=== PATIENT | female | born 1960 | race Caucasian/White ===

== ENCOUNTER 2017-07-29 11:46 | Outpatient (CLI) | payer OTHER ==
[2013-03-12 15:59] VITALS: BP 165/104
[2017-07-29 12:09] LABS: BASOPHILS % 0.4 (0.0-1.5); EOSINOPHILS % 5.4 % (0.0-6.8); MEAN CORPUSCULAR HEMOGLOBIN 29.2 pg (28.0-34.0); MEAN CORPUSCULAR VOLUME 85.1 fl (80.0-100.0); NEUTROPHILS # 4.7 # k/uL (1.4-7.7)
[2017-07-29 13:11] LABS: eGFR (African) > 60; eGFR (Non-African) > 60
--- NOTE | 2017-07-29 19:04 | Diagnostic Imaging Report ---
SALMA COOK [facility] [id number] [facility] [address] [place] [address]. [id number] Report Submission Date: Jul 29, 2017 12:28:33 PM EPIC RADIANT ANALYST Patient Study Name: AXEL JOY Date: Jul 29, 2017 12:08:26 PM EPIC RADIANT ANALYST Modality Type: DX Gender: F Description: CHEST : 62 Institution: [facility] Physician: SALMA COOK Examination: PA and lateral chest. History: CXR, SOA SINCE MAY 2017, OCCASIONAL COUGH AND DISCOMFORT, NON- SMOKER (Hx) Comparison exam: None provided. Findings: PA lateral chest demonstrate a normal cardiac and mediastinal silhouette. Body habitus reduces sensitivity. No focal/gross infiltrate. No blunting of the costophrenic margins. Mild articular degenerative changes. Impression: Limited study due to body habitus. No acute appearing pulmonary process. If symptoms persist, consider obtaining high-resolution CT chest to better evaluate lung parenchyma. Electronically signed on Jul 29, 2017 12:28:33 PM EPIC RADIANT ANALYST by: Reji REAGAN
== END 2017-07-29 11:47 ==
LOC: LAB 11:46
PROVIDERS: ATTEND Physician Assistant
DX: R06.02 Shortness of breath (principal); R00.2 Palpitations
CPT/HCPCS: 36415; 71046; 80053; 83880; 85025

== ENCOUNTER 2018-04-16 15:37 | Emergency (ER) | payer OTHER ==
[2018-04-16] MEDS ORDERED: ASPIRIN 81 MG CHEW TAB PO ONE (15:54)
[2018-04-16] MEDS ORDERED: LORazepam 2 MG/ML VIAL IVP ONE (15:57)
[2018-04-16 16:26] LABS: BASOPHILS % 0.3 (0.0-1.5); EOSINOPHILS % 2.8 % (0.0-6.8); MEAN CORPUSCULAR HEMOGLOBIN 27.3 pg (28.0-34.0); MONOCYTES % 5.7 % (0.0-11.0); NEUTROPHILS # 4.6 # k/uL (1.4-7.7)
--- NOTE | 2018-04-16 16:40 | ED Physician Documentation ---
Chest Pain - HISTORIAN Historian: patient - HPI Chief Complaint: Dyspnea Additional Information: recurrent past episodes sob w/chest tightness lower anterior and bilat chest "tightness" occurred 4 times past 24 hrs. Duration: waxing, waning Last known Well Date: 04/15/18 Last Known Well Time: 16:20 Last known Well Code/Unknown Code: Unknown Context: emotional upset (slight) Severity: moderate Quality: pressure, tightness (like band around bottom of ribs) Chest Pain Radiation: no radiation Chest Pain Signs/Symptoms: denies: nausea, vomiting, diaphoresis, cool extremities Worsened By: deep breaths, exertion, movement - ROS CONST: none MS/LYMPH: none GI/: none SKIN/ENDO: none NEURO/PSYCH: anxiety - PAST HX GA risk factors: hypertension (pneumonia - uses alb neb for occ sob---c/recent polydypsia but is some evid air hunger resp tachypnea near 30) TAD/AAA risk factors: (d/c post spon ) Neuro deficit: none Lung disease: asthma (?) Allergies/Adverse Reactions: Allergies Allergy/AdvReac Type Severity Reaction Status Date / Time Penicillins Allergy Severe Face Verified 04/16/18 17:04 Swelling Home Medications: Ambulatory Orders Medication Instructions Recorded Furosemide [Lasix] 40 mg PO DAILY #30 tablet 04/16/18 Lisinopril [Prinivil] 10 mg PO DAILY #30 tablet 04/16/18 - SOCIAL HX Smoking History: non-smoker Alcohol Use: none Drug Use: none - FAMILY HX Family HX: CAD over 55 (htn lung ca cva) - VITAL SIGNS Vital Signs: Vital Signs Temp Pulse Resp BP Pulse Ox 165/104 03/12/13 15:53 - REVIEWED ASSESSMENTS Nursing Assessment Reviewed: Yes Vitals Reviewed: Yes Progress - Progress Progress: pt prev took lisinopril for bp but off for few months {1725] ED Results Lab/Radiology - Lab Results Lab Results: Lab Results 04/16/18 16:16 WBC 6.50 K/ul K/ul (4.00-12.00) RBC 5.10 M/ul M/ul (3.90-5.20) Hgb 13.9 g/dL g/dL (12.0-16.0) Hct 42.4 % % (34.5-46.5) MCV 83.0 fl fl (80.0-100.0) MCH 27.3 pg L pg (28.0-34.0) MCHC 32.9 g/dL g/dL (30.0-36.0) RDW 15.4 % H % (11.3-14.3) Plt Count 265 K/mm3 K/mm3 (130-400) Neut % (Auto) 70.9 % % (39.0-79.0) Lymph % (Auto) 20.3 % % (16.0-50.0) Loving % (Auto) 5.7 % % (0.0-11.0) Eos % (Auto) 2.8 % % (0.0-6.8) Baso % (Auto) 0.3 (0.0-1.5) Neut # (Auto) 4.6 # k/uL # k/uL (1.4-7.7) Lymph # (Auto) 1.3 # k/uL # k/uL (0.6-4.0) Loving # (Auto) 0.4 # k/uL # k/uL (0.0-0.9) Eos # (Auto) 0.2 # k/uL # k/uL (0.0-0.6) Baso # (Auto) 0.0 # k/uL # k/uL (0.0-0.5) - Radiology Radiology Impressions: cxr reveals basal infiltrate compatible w/ CHFalso BNP SIG ELEVATED--ALL OF WHICH COMPATIBLE W/ SYMPTOMS - Orders Orders: ED Orders Category Date Time Status Continuous EKG monitoring Q30M Care 04/16/18 15:54 Ordered Continuous Pulse Oximetry Q30M Care 04/16/18 15:[address] IV Lock 1T Care 04/16/18 15:54 Ordered CHEST 2VIEW [RAD] Stat Exams 04/16/18 Ordered BNP [NT-proBNP] Stat Lab 04/16/18 Ordered CBC/PLATELET/DIFF Routine Lab 04/16/18 15:54 Ordered CMP Routine Lab 04/16/18 15:54 Ordered CREATINE KINASE Routine Lab 04/16/18 15:54 Ordered TROPONIN I (cTnI) Stat Lab 04/16/18 15:54 Ordered Aspirin Med 04/16/18 15:54 Once 324 mg PO NOW ONE LORazepam [Ativan] Med 11/18/18 15:57 Once 0.5 mg IVP NOW ONE Oxygen Daily Oxygen 04/16/18 16:00 Ordered EKG WITH COMPARISON Stat Ther 04/16/18 15:54 Ordered Chest Pain Physical Exam - EXAM General Appearance: moderate distress EENT: eye inspection normal Neck: nml inspection, no carotid bruit. No: JVD present, lymphadenopathy Respiratory: resp.distress (slight). No: no resp. distress, nml breath sounds (decreases) CVS: reg. rate & rhythm Abdomen: soft, non-tender Skin: warm/dry, normal color. No: cyanosis, diaphoresis, jaundice, mottled Extremities: non-tender, normal range of motion Neuro: oriented X3, motor nml, sensation nml. No: mood/affect nml (anxious) Discharge Clincal Impression: CONGESTIVE HEART FAILURE Prescriptions: Furosemide [Lasix] 40 mg PO DAILY #30 tablet Lisinopril [Prinivil] 10 mg PO DAILY #30 tablet Referrals: Sonu Avalos PA [PHYSICIAN PLASTIC FABRICATOR] - 2 Days Condition: Good Decision to Admit: NO Decision Time: 18:41
[2018-04-16 16:41] LABS: eGFR (Non-African) > 60
[2018-04-16] MEDS ORDERED: LISINOPRIL 5 MG TABLET PO ONE (17:23)
--- NOTE | 2018-04-16 17:40 | Diagnostic Imaging Report ---
KEV COON [facility] [address] [facility] [address] [address] Report Submission Date: Apr 16, 2018 5:08:18 PM LENS SILVERER Patient Study Name: AXEL JOY Date: Apr 16, 2018 4:37:16 PM LENS SILVERER Modality Type: DX Gender: F Description: CHEST : 62 Institution: [facility] Physician: KEV COON Chest, PA and lateral History: Shortness of breath, dyspnea, chest pain Findings: Bilateral lower lobe infiltrates are present. There is no pneumothorax or pleural effusion. Heart size and pulmonary vascularity are normal. Since to August 2014, infiltrates are new. Impression: New bilateral lower lobe infiltrates. Electronically signed on Apr 16, 2018 5:08:18 PM LENS SILVERER by: Stuart REAGAN
--- NOTE | 2018-04-16 18:25 | Diagnostic Imaging Report ---
KEV COON [facility] [address] [facility] [address] [place], [place]. [address] Report Submission Date: Apr 16, 2018 5:57:43 PM IT SUPPORT CONSULTANT Patient Study Name: AXEL JOY Date: Apr 16, 2018 5:25:37 PM IT SUPPORT CONSULTANT Modality Type: CT\SR Gender: F Description: CT CHEST W/O CONTRAST : 62 Institution: [facility] Physician: KEV COON CT chest without contrast History: Pneumonia Technique: Images through the chest were obtained without contrast. Findings: Moderate bilateral pleural effusions are present. Moderate diffuse bilateral ground glass infiltrates are present, consistent with interstitial edema. There is no pneumothorax. There is no alveolar infiltrate, atelectasis or consolidation. Evaluation of the mediastinum is limited by lack of intravenous contrast. Calcified mediastinal and hilar lymph nodes are present. Included portions of upper abdomen are normal. Impression: Bilateral pleural effusions. Interstitial edema, consistent with heart failure. Electronically signed on Apr 16, 2018 5:57:43 PM IT SUPPORT CONSULTANT by: Stuart REAGAN
[2018-04-16] MEDS ORDERED: FUROSEMIDE 40 MG TABLET PO ONE (18:33)
[2018-04-16 20:25] VITALS: BP 137/86
== END 2018-04-16 19:37 | disposition home or self-care (01) ==
LOC: ED 15:37
DX: I50.9 Heart failure, unspecified (principal)
CPT/HCPCS: 71046; 71250; 80053; 82550; 83880; 84484; 85025; 93005; J2060; 96374; 99283; 99284; S1016